=== PATIENT | male | born 1945 | race Native Hawaiian/Other Pacific Islander ===

== ENCOUNTER 2019-11-16 18:45 | Emergency (ER) | payer OTHER ==
[~2019-11-16] VITALS: Ht 175.3 cm; Wt 77.1 kg
[2019-11-16 18:45] VITALS: BP 133/47; TEMP 98.1
[2019-11-16 19:25] LABS: PLATELET COUNT 418 K/uL (142-355)
[2019-11-16 19:50] LABS: PARTIAL THROMBOPLASTIN TIME 40.6 SECONDS (24.5-33.6)
[2019-11-16 20:02] LABS: POTASSIUM 4.6 mmol/L (3.6-5.2); SODIUM 134 mmol/L (136-145)
[2019-11-16 21:04] VITALS: BP 128/41; TEMP 98.9
[2019-11-16 21:42] VITALS: BP 138/25
[2019-11-16 21:58] VITALS: BP 138/41
[2019-11-16 22:28] VITALS: BP 138/41; TEMP 98.9
== END 2019-11-16 22:29 | disposition still patient (30) ==
LOC: ED 18:59 → ICU 20:30 → ED 22:29
PROVIDERS: Hospitalist
DX: J44.9 Chronic obstructive pulmonary disease, unspecified (principal); J18.9 Pneumonia, unspecified organism; D64.89 Other specified anemias; I50.9 Heart failure, unspecified; F17.290 Nicotine dependence, other tobacco product, uncomplicated
CPT/HCPCS: 36415; 36600; 80053; 80320; 81000; 82272; 82550; 82805; 83880; 84484; 85027; 85379; 85610; 85730; 86850; 86900; 86901; 87040; 93005; 96365; 96375; 99285; J0696; J1940